=== PATIENT | female | born 1985 | race Asian ===

== ENCOUNTER 2021-03-30 21:22 | Emergency (ER) | payer OTHER ==
[~2021-03-30] VITALS: Ht 157.5 cm; Wt 55.6 kg
[2021-03-31] MEDS ORDERED: ASPIRIN 81MG TABLET PO ONE (00:15)
[2021-03-31] MEDS: NITROGLYCERIN 0.4MG TABLET SL SL PRN ×2 (00:23→00:55)
[2021-03-31 00:45] LABS: BASOPHILS % 0.4 % (0.0-2.0); EOSINOPHILS % 0.3 % (0.0-5.0); HEMATOCRIT. 44.9 % (36.0-48.0); HEMOGLOBIN. 15.3 g/dL (12.0-16.0); MEAN CORPUSCULAR HEMOGLOBIN 32.1 pg (28.0-32.0); MEAN CORPUSCULAR VOLUME 94.6 fL (81.0-99.0); MONOCYTES % 6.3 % (2.0-8.0); PLATELET 279 x1000/uL (130-400); RED BLOOD CELL COUNT 4.75 mill/uL (4.2-5.4); RED CELL DISTRIBUTION WIDTH 12.4 % (11.6-14.6)
[2021-03-31 00:56] VITALS: BP 128/95
[2021-03-31 00:56] LABS: CHLORIDE 104 mEq/L (98-107)
[2021-03-31] MEDS ORDERED: IBUP-2028 MT (17:07)
[2021-03-31] MEDS ORDERED: TOPUD PO (17:07)
== END 2021-03-31 03:11 | disposition home or self-care (01) ==
LOC: ER 21:22
DX: R07.9 Chest pain, unspecified (principal); R94.31 Abnormal electrocardiogram [ECG] [EKG]; R00.0 Tachycardia, unspecified
CPT/HCPCS: 36415; 71045; 80053; 83880; 84484; 85025; 85379; 93005; 99285

== ENCOUNTER 2021-03-31 09:53 | Emergency (ER) | payer OTHER ==
[~2021-03-31] VITALS: Ht 157.5 cm; Wt 58.0 kg
[2021-03-31 12:00] LABS: CHLORIDE 103 mEq/L (98-107)
[2021-03-31 12:01] LABS: BASOPHILS % 0.5 % (0.0-2.0); EOSINOPHILS % 0.3 % (0.0-5.0); HEMATOCRIT. 41.1 % (36.0-48.0); HEMOGLOBIN. 14.4 g/dL (12.0-16.0); LYMPHOCYTES % 14.3 % (20.0-50.0); MEAN CORPUSCULAR HEMOGLOBIN 32.6 pg (28.0-32.0); MEAN CORPUSCULAR VOLUME 92.7 fL (81.0-99.0); MEAN PLATELET VOLUME 8.3 fl (7.4-10.4); MONOCYTES % 8.8 % (2.0-8.0); NEUTROPHILS % 76.1 % (40.0-76.0); PLATELET 252 x1000/uL (130-400); RED BLOOD CELL COUNT 4.43 mill/uL (4.2-5.4); RED CELL DISTRIBUTION WIDTH 12.3 % (11.6-14.6)
[2021-03-31 12:16] LABS: HCG SCREEN NEGATIVE
[2021-03-31] MEDS ORDERED: MORPHINE SULFATE 4 MG/ML CPJ (NOT FOR IM USE) IV ONE (13:00)
[2021-03-31] MEDS ORDERED: IBUP-2028 MT (17:07)
[2021-03-31] MEDS ORDERED: TOPUD PO (17:07)
[2021-03-31 18:04] VITALS: BP 117/80
== END 2021-03-31 18:10 | disposition home or self-care (01) ==
LOC: ER 09:53 → CANBEDREQ 19:07
DX: R07.9 Chest pain, unspecified (principal)
CPT/HCPCS: 36415; 71275; 74174; 80053; 83880; 84484; 84703; 85025; 85651; 86140; 93005; 96374; 99285; J2270